=== PATIENT | male | born 1970 | race Hispanic/Latino ===

== ENCOUNTER 2017-08-13 23:47 | Emergency (ER) | payer OTHER ==
[2017-08-14] MEDS ORDERED: NORCO 5/325 PO ONE (01:35)
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
[2017-08-14] MEDS ORDERED: THERMAZENE 50 GRAM TP ONE (02:59)
[2017-08-14 03:28] VITALS: BP 125/83
== END 2017-08-14 03:35 | disposition home or self-care (01) ==
LOC: ED 23:47
DX: T23.251A Burn of second degree of right palm, initial encounter (principal); J45.909 Unspecified asthma, uncomplicated; Z87.891 Personal history of nicotine dependence; T65.891A Toxic effect of other specified substances, accidental (unintentional), initial encounter; Y92.89 Other specified places as the place of occurrence of the external cause